=== PATIENT | female | born 1975 | race Asian ===

== ENCOUNTER 2016-11-16 10:53 | Emergency (ER) | payer OTHER ==
[~2016-11-16] VITALS: Ht 157.5 cm; Wt 58.5 kg
[2016-11-16 13:27] LABS: PLATELET COUNT 294 K/uL (152-353)
[2016-11-16 13:41] LABS: POTASSIUM 3.6 mmol/L (3.6-5.2); SODIUM 141 mmol/L (136-145)
[2016-11-16 17:00] VITALS: BP 114/74; TEMP 98
== END 2016-11-16 17:00 | disposition home or self-care (01) ==
LOC: ED 10:53
PROVIDERS: Specialist
DX: N73.8 Other specified female pelvic inflammatory diseases (principal); R10.817 Generalized abdominal tenderness
CPT/HCPCS: 36415; 80053; 81000; 81025; 85027; 87070; 87490; 87590; 96372; 99284; J0696; Q9963

== ENCOUNTER 2017-06-16 16:54 | Emergency (ER) | payer OTHER ==
[~2017-06-16] VITALS: Ht 162.6 cm; Wt 56.7 kg
[2017-06-16 17:09] VITALS: BP 173/82; TEMP 97.4
== END 2017-06-16 17:19 | disposition home or self-care (01) ==
LOC: ED 16:54
DX: N93.9 Abnormal uterine and vaginal bleeding, unspecified (principal); R30.0 Dysuria
CPT/HCPCS: 99281

== ENCOUNTER 2022-07-29 13:23 | Emergency (ER) | payer OTHER ==
[~2022-07-29] VITALS: Ht 157.5 cm; Wt 59.9 kg
[2022-07-29 15:55] VITALS: BP 131/74; TEMP 98.2
== END 2022-07-29 16:00 | disposition home or self-care (01) ==
LOC: ED 13:23
DX: S16.1XXA Strain of muscle, fascia and tendon at neck level, initial encounter (principal); R51.9 Headache, unspecified; V40.5XXA Car driver injured in collision with pedestrian or animal in traffic accident, initial encounter; Y92.89 Other specified places as the place of occurrence of the external cause
CPT/HCPCS: 81000; 81025; 99283